=== PATIENT | female | born 1975 | race Caucasian/White ===

== ENCOUNTER 2023-02-28 16:18 | Emergency (ER) | payer OTHER, MEDICAID ==
[~2023-02-28] VITALS: Ht 157.5 cm; Wt 91.0 kg
[2023-02-28 18:12] LABS: Basophils # (auto) 0.1 10 ^3/uL (0-0.2); Eosinophils # (auto) 0.4 10 ^3/uL (0-0.8); Hemoglobin 10.2 g/dL (12.2-16.2); Nucleated Red Blood Cells % 0.1 %; White Blood Cell 8.8 10^3/uL (4.4-10.8)
[2023-02-28 18:14] LABS: Basophils % (auto) 0.7 % (0.0-2.0); Eosinophils % (auto) 4.1 % (0.0-7.0); Lymphocytes # (auto) 2.2 10 ^3/uL (0.4-5.4); Lymphocytes % (auto) 24.8 % (10.0-50.0); Mean Corpuscular Hemoglobin 22.5 pg (28.0-32.0); Mean Corpuscular Volume 72.5 fL (80.0-100.0); Monocytes # (auto) 0.7 10 ^3/uL (0-1.3); Monocytes % (auto) 7.6 % (0.0-12.0); Neutrophils # (auto) 5.5 10 ^3/uL (1.6-8.6); Neutrophils % (auto) 62.8 % (37.0-80.0); Red Blood Cells 4.55 10^6/uL (4.0-5.20); Red Cell Distribution Width 18.1 % (11.8-14.3)
[2023-02-28 18:30] LABS: Albumin 3.1 g/dL (3.4-5.0); Calcium 9.3 mg/dL (8.5-10.1); Potassium 4.3 mmol/L (3.5-5.1)
[2023-02-28 18:33] LABS: BUN/Creatinine Ratio 18.8 (10.0-20.0); Bilirubin, Total 0.3 mg/dL (0.2-1.0); Total Protein 6.8 g/dL (6.4-8.2)
[2023-02-28 20:10] LABS: Urine Bacteria NONE SEEN /hpf (None Seen); Urine Blood Negative /uL (Negative); Urine Hyaline Cast FEW /lpf (0 - 2); Urine Specific Gravity 1.015 (1.001-1.035); Urine WBC 2 /hpf (0 - 5)
[2023-03-01] MEDS ORDERED: ALBUTEROL SULF 2.5 MG/0.5ML(0.5%) NEB SOLN NEB ONE (00:45)
[2023-03-01] MEDS ORDERED: IPRATROPIUM BROM 0.5 MG/2.5ML INH SOL NEB ONE (00:45)
[2023-03-01] MEDS ORDERED: ALBUAER3 IN (01:08)
[2023-03-01] MEDS ORDERED: NITR-87 PO (01:08)
[2023-03-01] MEDS ORDERED: PRED20TA2 PO (01:08)
[2023-03-01] MEDS ORDERED: OXYCODONE W/ ACETAMINOPHEN 5/325MG TABLET PO ONE (02:15)
[2023-03-01] MEDS ORDERED: CIPR-173 PO (02:18)
[2023-03-01 02:22] VITALS: BP 191/102
== END 2023-03-01 02:22 | disposition home or self-care (01) ==
LOC: ER 16:18 → EDBD 16:18 → ER 03-01 02:22
DX: N39.0 Urinary tract infection, site not specified (principal); R10.9 Unspecified abdominal pain; R30.0 Dysuria; Z88.0 Allergy status to penicillin; Z88.2 Allergy status to sulfonamides; Z90.49 Acquired absence of other specified parts of digestive tract
CPT/HCPCS: 36415; 74176; 80053; 81001; 83690; 85025; 94640; 99284; J7644